=== PATIENT | female | born 1965 | race Caucasian/White ===

== ENCOUNTER 2016-12-19 19:45 | Emergency (ER) | payer SELFPAY ==
[2016-12-19 20:37] LABS: SPECIFIC GRAVITY 1.025 (1.001-1.030); URINE BILIRUBIN NEGATIVE (NEGATIVE); URINE BLOOD 3+ (NEGATIVE); URINE GLUCOSE (UA) NEGATIVE (NEGATIVE); URINE LEUKOCYTE ESTERASE TRACE (NEGATIVE); URINE NITRITE NEGATIVE (NEGATIVE); URINE PROTEIN TRACE (NEGATIVE); URINE UROBILINOGEN NORMAL (0-1 mg/dl)
[2016-12-19 20:40] LABS: URINE APPEARANCE CLEAR; URINE COLOR DARK YELLOW
[2016-12-19] MEDS ORDERED: HYDROMORPHONE HCL 1 MG/ML SYRINGE ONE (20:45)
[2016-12-19 21:46] LABS: URINE RBC 0-2 /hpf
[2016-12-19 21:47] LABS: URINE BACTERIA 1+; URINE EPITHELIAL CELLS 0-2 /hpf; URINE MUCUS 1+
== END 2016-12-19 21:22 | disposition home or self-care (01) ==
LOC: ED 19:45
DX: M54.5 Low back pain (principal); E66.9 Obesity, unspecified; F17.210 Nicotine dependence, cigarettes, uncomplicated
CPT/HCPCS: 87086; 81001; 99283 ×2; 96372; J1170